=== PATIENT | male | born 1940 | race Caucasian/White ===

== ENCOUNTER 2017-03-05 11:25 | Outpatient (CLI) | payer MEDICARE, BC ==
[2017-03-05 12:01] LABS: #Basophils 0.1 thou/uL (0.0-0.2); #Eosinphils 0.7 thou/uL (0.0-0.7); #Lymphocytes 1.6 thou/uL (1.20-3.40); #Monocytes 1.3 thou/uL (0.11-0.59); #Neutrophils 6.1 thou/uL (1.40-6.50); %Basophils 0.9 % (0.0-1.0); %Eosinophils 7.5 % (0.0-10.0); %Monocytes 13.2 % (0.0-10.0); %Neutrophils 62.4 % (42.0-75.0); Hemoglobin 16.6 g/dL (14.0-18.0); Mean Corpuscular HGB CONC 35.2 g/dL (32.0-36.0); Mean Corpuscular Hemoglobin 32.3 pg (27.0-31.0); Mean Corpuscular Volume 91.6 fl (80.0-94.0); Platelet Count 374 thou/uL (130-400); RBC Distribution Width 11.7 % (11.5-14.5); Red Blood Cell (RBC) Count 5.13 mill/uL (4.70-6.10); White Blood Cell (WBC) Count 9.8 thou/uL (4.8-10.8)
[2017-03-05 12:10] LABS: ALT (SGPT) 13 U/L (8-55); AST (SGOT) 17 U/L (5-34); Albumin 3.5 g/dL (3.4-4.8); Alkaline Phosphatase 79 U/L (40-150); Anion Gap 16 mmol/L (10-20); BUN (Urea Nitrogen) 9 mg/dL (8.4-25.7); Bilirubin, Total 0.9 mg/dL (0.2-1.2); Calc. Creatinine Clearance 0 mL/min (70-130); Calcium 8.8 mg/dL (7.8-10.44); Carbon Dioxide 26 mmol/L (23-31); Chloride 101 mmol/L (98-107); Estimated GFR-MDRD 88; Globulin 3.2 g/dL (2.4-3.5); Glucose 97 mg/dL (83-110); Potassium 4.2 mmol/L (3.5-5.1); Protein, Total 6.7 g/dL (5.8-8.1); Sodium 139 mmol/L (136-145)
== END 2017-03-05 11:26 | disposition home or self-care (01) ==
LOC: HPCALD 11:25
PROVIDERS: ATTEND Family Medicine
DX: R60.0 Localized edema (principal)
CPT/HCPCS: 36415; 80053; 83880; 84443; 85025

== ENCOUNTER 2017-03-07 09:11 | Outpatient (CLI) | payer MEDICARE, BC ==
--- NOTE | 2017-03-07 20:50 | ULT ---
LEFT LOWER EXTREMITY VENOUS ULTRASOUND 03/07/17 Color duplex doppler ultrasonography of the deep veins of the left lower extremity was performed fo r evaluation of edema. Documentary images and worksheets were provided and reviewed. All deep veins were freely compressible from groin to ankle. No echogenic clot was seen. There was n ormal doppler response to augmentation maneuvers. IMPRESSION: No evidence of DVT. POS: HOME
== END 2017-03-07 09:12 | disposition home or self-care (01) ==
LOC: BURULT 09:11
PROVIDERS: ATTEND Family Medicine
DX: R60.0 Localized edema (principal)

== ENCOUNTER 2017-03-23 11:53 | Outpatient (CLI) | payer MEDICARE, BC ==
[2017-03-23 12:59] LABS: Anion Gap 13 mmol/L (10-20); BUN (Urea Nitrogen) 8 mg/dL (8.4-25.7); Calc. Creatinine Clearance 0 mL/min (70-130); Calcium 9.1 mg/dL (7.8-10.44); Carbon Dioxide 30 mmol/L (23-31); Chloride 100 mmol/L (98-107); Estimated GFR-MDRD 85; Glucose 107 mg/dL (83-110); Sodium 139 mmol/L (136-145)
== END 2017-03-23 11:54 | disposition home or self-care (01) ==
LOC: HPCALD 11:53
PROVIDERS: ATTEND Family Medicine
DX: R60.9 Edema, unspecified (principal)
CPT/HCPCS: 36415; 80048

== ENCOUNTER 2022-08-05 13:15 | Observation (INO) | payer MEDICARE, BC ==
[~2022-08-05 13:15] MED LIST: Iopamidol 370 76% 100 ML VIAL ONE
[2022-08-05 14:01] LABS: #Basophils 0.1 thou/uL (0.0-0.2); #Lymphocytes 1.2 thou/uL (1.20-3.40); #Monocytes 0.9 thou/uL (0.11-0.59); #Neutrophils 12.1 thou/uL (1.40-6.50); %Basophils 0.4 % (0.0-1.0); %Eosinophils 0.3 % (0.0-10.0); %Lymphocytes 8.1 % (21.0-51.0); %Monocytes 6.4 % (0.0-10.0); %Neutrophils 84.9 % (42.0-75.0); Hemoglobin 14.3 g/dL (14.0-18.0); Mean Corpuscular HGB CONC 32.8 g/dL (32.0-36.0); Mean Corpuscular Volume 94.6 fl (78.0-98.0); Mean Platelet Volume 7.2 fL (7.4-10.4); Platelet Count 250 10x3/uL (130-400); RBC Distribution Width 12.5 % (11.5-14.5); Red Blood Cell (RBC) Count 4.62 mill/uL (4.70-6.10); White Blood Cell (WBC) Count 14.3 10x3/uL (4.8-10.8)
[2022-08-05 14:03] LABS: ALT (SGPT) 16 U/L (8-55); AST (SGOT) 15 U/L (5-34); Albumin 3.4 g/dL (3.4-4.8); Alkaline Phosphatase 80 U/L (40-110); Anion Gap 13 mmol/L (10-20); BUN (Urea Nitrogen) 16 mg/dL (8.4-25.7); Bilirubin, Total 0.9 mg/dL (0.2-1.2); Calc. Creatinine Clearance 0 mL/min (70-130); Calcium 8.7 mg/dL (7.8-10.44); Carbon Dioxide 27 mmol/L (23-31); Chloride 102 mmol/L (98-107); Estimated GFR 66; Globulin 2.9 g/dL (2.4-3.5); Glucose 116 mg/dL (83-110); Magnesium 1.8 mg/dL (1.6-2.6); Potassium 4.7 mmol/L (3.5-5.1); Protein, Total 6.3 g/dL (5.8-8.1); Sodium 137 mmol/L (136-145)
[2022-08-05] MEDS ORDERED: Acetaminophen 325 MG TAB ONE (15:06)
[2022-08-05 15:53] LABS: Bilirubin Small (Negative); Blood, Urine Negative (Negative); Glucose, Urine (Dipstick) Negative (Negative); Ketone, Urine Trace mg/dL (Negative); Leukocyte Negative (Negative); Nitrite Negative (Negative); Protein, Urine (Dipstick) Negative (Neg-Trace)
[2022-08-05 15:54] LABS: Clarity Hazy (Clear)
[2022-08-05] MEDS ORDERED: Ondansetron ODT 4 MG TAB SL PRN (16:45)
[2022-08-05] MEDS ORDERED: Acetaminophen 325 MG TAB PO PRN (16:45)
[2022-08-05] MEDS ORDERED: Ondansetron PF 4 MG/2 ML Vial IVP PRN (16:45)
[2022-08-05 16:47] LABS: Lactic Acid 2.1 mmol/L (0.5-2.2)
[2022-08-05 18:04] LABS: SARS-CoV-2 NAA Rapid Test Not Detected (NotDetected)
[2022-08-05 18:45] VITALS: BMI 27.3
[2022-08-05] MEDS: Sodium Chloride 0.9% 1,000 ML IV SCH (19:45)
[2022-08-05] MEDS ORDERED: metroNIDAZOLE 500 MG in Premix Bag 1 BAG IVPB SCH (22:00)
[2022-08-06] MEDS: Sodium Chloride 0.9% 1,000 ML IV SCH (04:18)
[2022-08-06 05:57] LABS: Hemoglobin 11.5 g/dL (14.0-18.0); Mean Corpuscular HGB CONC 33.9 g/dL (32.0-36.0); Mean Corpuscular Hemoglobin 31.4 pg (27.0-31.0); Mean Corpuscular Volume 92.7 fl (78.0-98.0); Mean Platelet Volume 7.5 fL (7.4-10.4); Platelet Count 244 10x3/uL (130-400); RBC Distribution Width 12.3 % (11.5-14.5); Red Blood Cell (RBC) Count 3.65 mill/uL (4.70-6.10); White Blood Cell (WBC) Count 11.9 10x3/uL (4.8-10.8)
[2022-08-06 06:00] LABS: Anion Gap 7 mmol/L (10-20)
[2022-08-06 06:26] LABS: ALT (SGPT) 10 U/L (8-55); AST (SGOT) 12 U/L (5-34); Albumin 2.5 g/dL (3.4-4.8); Alkaline Phosphatase 53 U/L (40-110); BUN (Urea Nitrogen) 15 mg/dL (8.4-25.7); Bilirubin, Total 0.7 mg/dL (0.2-1.2); Calc. Creatinine Clearance 72 mL/min (70-130); Calcium 7.5 mg/dL (7.8-10.44); Carbon Dioxide 26 mmol/L (23-31); Chloride 110 mmol/L (98-107); Estimated GFR 83; Globulin 2.2 g/dL (2.4-3.5); Glucose 86 mg/dL (83-110); Potassium 3.9 mmol/L (3.5-5.1); Protein, Total 4.7 g/dL (5.8-8.1); Sodium 139 mmol/L (136-145)
[2022-08-06 06:31] VITALS: TEMP 98.1
[2022-08-06 06:43] LABS: Band 4 % (5-11); Eosinophils 2 % (0-10); Lymphocytes 19 % (21-51); MDiff Complete? YES; Monocytes 19 % (0-10); Neutrophil 55 % (42-75); Reactive Lymphocytes 1 % (0-10)
[2022-08-06] MEDS ORDERED: Aspirin 81 mg Enteric Coated Tablet PO SCH (09:00)
[2022-08-06] MEDS ORDERED: Saccharomyces boulardii 250 MG CAP PO SCH (09:00)
[2022-08-06] MEDS ORDERED: Lisinopril 5 MG TAB PO SCH (09:00)
[2022-08-06] MEDS ORDERED: Carvedilol 3.125 MG TAB PO SCH (09:00)
[2022-08-06] MEDS ORDERED: Furosemide 20 MG TAB PO SCH (09:00)
[2022-08-06] MEDS ORDERED: Atorvastatin Calcium 40 MG TAB PO SCH (09:00)
[2022-08-06 09:20] VITALS: BP 110/60
[2022-08-09 14:13] LABS: Routine O & P Final report (.)
== END 2022-08-06 11:15 | disposition home or self-care (01) ==
LOC: BURERS 13:15 → BURMED 16:59
PROVIDERS: ADMIT Family Medicine; ATTEND Family Medicine
DX: E86.0 Dehydration (principal); R55 Syncope and collapse; I11.9 Hypertensive heart disease without heart failure; D72.829 Elevated white blood cell count, unspecified; A09 Infectious gastroenteritis and colitis, unspecified; I95.9 Hypotension, unspecified; I25.10 Atherosclerotic heart disease of native coronary artery without angina pectoris; E78.5 Hyperlipidemia, unspecified; Z79.82 Long term (current) use of aspirin; Z79.899 Other long term (current) drug therapy; Z95.1 Presence of aortocoronary bypass graft; Z20.822 Contact with and (suspected) exposure to COVID-19
CPT/HCPCS: 36415; 70450; 71045; 71275; 72125; 80053; 81003; 83605; 83630; 83735; 83880; 84443; 84484; 85025; 85379; 87177; 87324; 87449; 93005; 96360; 96365; 96367; G0378; J0744; J7050; Q9967; U0002

== ENCOUNTER 2022-08-09 08:48 | Outpatient (CLI) | payer MEDICARE, BC | END 2022-08-09 08:49 | disposition home or self-care (01) | LOC: BURCT 08:48 | PROVIDERS: ATTEND Family Medicine | DX: R10.32 Left lower quadrant pain (principal); K52.9 Noninfective gastroenteritis and colitis, unspecified; K62.89 Other specified diseases of anus and rectum | CPT/HCPCS: 74177 ==

== ENCOUNTER 2023-03-26 08:57 | Emergency (ER) | payer MEDICARE, BC ==
[2023-03-26] MEDS ORDERED: diphenhydrAMINE 50 MG/ML VIAL ONE (10:01)
[2023-03-26] MEDS ORDERED: Dexamethasone 10 MG/ML VIAL ONE (10:01)
== END 2023-03-26 09:50 | disposition home or self-care (01) ==
LOC: BURERS 08:57
DX: Z43.3 Encounter for attention to colostomy (principal); I10 Essential (primary) hypertension; C20 Malignant neoplasm of rectum; Z95.1 Presence of aortocoronary bypass graft
CPT/HCPCS: 99283; J1100; J1200

== ENCOUNTER 2023-12-28 17:22 | Emergency (ER) | payer MEDICARE ==
[2023-12-28] MEDS ORDERED: Lorazepam 2 MG/ML VIAL ONE (17:59)
[2023-12-28] MEDS ORDERED: Glucagon 1 MG/ML KIT ONE (17:59)
[2023-12-28 18:02] LABS: #Basophils 0.1 thou/uL (0.0-0.2); #Eosinphils 0.8 thou/uL (0.0-0.7); #Lymphocytes 2.1 thou/uL (1.20-3.40); #Monocytes 1.8 thou/uL (0.11-0.59); #Neutrophils 7.7 thou/uL (1.40-6.50); %Eosinophils 6.1 % (0.0-10.0); Hematocrit 33.8 % (42.0-52.0); Hemoglobin 10.7 g/dL (14.0-18.0); Mean Corpuscular HGB CONC 31.6 g/dL (32.0-36.0); Mean Corpuscular Hemoglobin 29.5 pg (27.0-31.0); Mean Corpuscular Volume 93.4 fl (78.0-98.0); Mean Platelet Volume 6.5 fL (7.4-10.4); Platelet Count 378 10x3/uL (130-400); RBC Distribution Width 14.3 % (11.5-14.5); Red Blood Cell (RBC) Count 3.62 mill/uL (4.70-6.10); White Blood Cell (WBC) Count 12.5 10x3/uL (4.8-10.8)
[2023-12-28 18:16] LABS: Prothrombin Time 13.5 sec (12.0-14.7)
[2023-12-28 18:17] LABS: ALT (SGPT) 15 U/L (8-55); AST (SGOT) 13 U/L (5-34); Albumin 3.2 g/dL (3.4-4.8); Alkaline Phosphatase 68 U/L (40-110); Anion Gap 13 mmol/L (10-20); BUN (Urea Nitrogen) 17 mg/dL (8.4-25.7); Bilirubin, Total 0.6 mg/dL (0.2-1.2); Calc. Creatinine Clearance 0 mL/min (70-130); Calcium 8.5 mg/dL (7.8-10.44); Carbon Dioxide 26 mmol/L (23-31); Chloride 107 mmol/L (98-107); Estimated GFR 87; Globulin 2.7 g/dL (2.4-3.5); Glucose 97 mg/dL (83-110); Potassium 3.7 mmol/L (3.5-5.1); Protein, Total 5.9 g/dL (5.8-8.1); Sodium 142 mmol/L (136-145)
== END 2023-12-28 20:07 ==
LOC: BURERS 17:22
DX: T18.128A Food in esophagus causing other injury, initial encounter (principal); I10 Essential (primary) hypertension; E78.5 Hyperlipidemia, unspecified; W44.F3XA Food entering into or through a natural orifice, initial encounter; Y93.89 Activity, other specified; Z79.82 Long term (current) use of aspirin; Z79.899 Other long term (current) drug therapy; Z95.1 Presence of aortocoronary bypass graft
CPT/HCPCS: 70490; 80053; 85025; 85610; 96374; 96375; 99284; J1611; J2060